=== PATIENT | male | born 1995 | race Caucasian/White ===

== ENCOUNTER 2022-10-24 19:57 | Emergency (ER) | payer BC ==
[~2022-10-24] VITALS: Ht 182.9 cm; Wt 79.4 kg
--- NOTE | 2022-10-24 20:15 | NUR ---
Dr. Riggins at bedside for MSE.
[2022-10-24] MEDS ORDERED: LIDOCAINE 2% (GLYDO= UROJET) 10 ML JELLY MM ONE (20:30)
[2022-10-24] MEDS ORDERED: SYRI-29 MC (20:32)
[2022-10-24] MEDS ORDERED: MECO10006 IM (20:32)
[2022-10-24 20:54] LABS: *BILIRUBIN,URIN 1+ (NEGATIVE); *BLOOD, URINE 3+ (NEGATIVE); *CLARITY,URINE CLEAR (CLEAR); *COLOR,URINE YELLOW (YELLOW); *KETONES,URINE TRACE (NEGATIVE); *UROBILINOGEN,URINE 0.2 E.U./dl (NORMAL); LEUKOCYTE ESTERASE ,URINE 1+ (NEGATIVE); NITRITE, URINE NEGATIVE (NEGATIVE); UGLUCOSE NEGATIVE (NEGATIVE)
[2022-10-24] MEDS ORDERED: CYANOCOBALAMIN 1000 MCG/ML VIAL IM ONE (21:15)
[2022-10-24] MEDS ORDERED: CYANOCOBALAMIN 1000 MCG/ML VIAL ONE (21:15)
--- NOTE | 2022-10-24 21:24 | NUR ---
Patient discharged to home in stable condition. Written and verbal after care instructions given. Patient verbalizes understanding of instructions. Stressed follow up or return to ER for worsening s/s. Patient out of ER with steady gait, no acute signs of distress, VSS, all belongings taken.
[2022-10-24 21:25] VITALS: BP 141/91; O2SAT 97
[2022-10-25 00:16] LABS: RBC,URINE 20-50 /HPF (0-3)
[2022-10-25 00:17] LABS: BACTERIA,URINE FEW /HPF (NONE SEEN); MUCUS,URINE MODERATE /LPF (0-FEW); SQUAMOUS EPITHELIAL CELL,UR NONE SEEN /HPF (NONE SEEN)
== END 2022-10-24 21:25 | disposition home or self-care (01) ==
LOC: ER 20:12
DX: R31.9 Hematuria, unspecified (principal); E53.8 Deficiency of other specified B group vitamins; N31.9 Neuromuscular dysfunction of bladder, unspecified; Z79.899 Other long term (current) drug therapy
CPT/HCPCS: 99284; 81001; 82607; 51702; 83921; 96372; J3420; A4663